=== PATIENT | female | born 2000 | race Caucasian/White ===

== ENCOUNTER 2023-09-18 07:24 | Emergency (ER) | payer BC, SELFPAY ==
[2023-09-18 07:31] VITALS: BP 126/64; PULSE 115; RESP 18; TEMP 36.4; O2SAT 99
--- NOTE | 2023-09-18 07:46 | ED.GENADULT ---
HPI - General Adult General Chief complaint: Upper Respiratory Infection Stated complaint: Cold, headache Time Seen by Provider: 09/18/23 07:37 History of Present Illness HPI narrative: Patient is a 22-year-old female who presents ER with concerns for URI. She reports last night she began developing sinus congestion with postnasal drip and sore throat. It is associated with throbbing headache. She had difficulty sleeping. She tried taking NyQuil without improvement. She endorses fevers. No known sick contacts. Patient has history of asthma but has no dyspnea or wheezing. Patient took Tylenol for headache without relief. Related Data Allergies Allergy/AdvReac Type Severity Reaction Status Date / Time No Known Allergies Allergy Verified 09/18/23 07:34 Review of Systems Review of Systems: All systems reviewed & are unremarkable except as noted in HPI and below Constitutional: Constitutional: Denies chills, Reports fatigue and Reports fever(s) ENT: Reports nasal congestion and Reports sore throat Respiratory: Respiratory: Reports cough, Denies dyspnea and Denies wheezing Gastrointestinal: Gastrointestinal: Denies abdominal pain, Denies nausea and Reports vomiting PMFSH Past Medical History Medical History (Updated 09/18/23 @ 10:13 by Pietro Osorio MD) Asthma Surgical History Surgical History (Updated 09/18/23 @ 07:49 by Pietro Osorio MD) No pertinent past surgical history Exam Narrative: GENERAL: Well-appearing, well-nourished, and in no acute distress. HEAD: Normocephalic, atraumatic. ENT: Mucous membranes moist. NECK: Supple. CHEST: Clear to auscultation. No respiratory distress. HEART: Regular rate and rhythm. Normal peripheral pulses. EXTREMITIES: Normal range of motion. No edema. NEURO: Alert and oriented x3. PSYCH: Normal mood and affect. Course Course Emergency Course: Patient informed of her COVID status. Will be placed on Paxil bid. Headache treated with Toradol. Recommend alternating Tylenol and ibuprofen at home. Vital Signs Vital signs: Vital Signs Temperature 97.6 F 09/18/23 07:31 Pulse Rate 115 H 09/18/23 07:31 Respiratory Rate 18 09/18/23 07:31 Blood Pressure 126/64 09/18/23 07:31 Pulse Oximetry 99 09/18/23 07:31 Oxygen Delivery Room Air 09/18/23 07:31 Temperature 97.6 F 09/18/23 07:31 Pulse Rate 90 09/18/23 10:07 Respiratory Rate 18 09/18/23 10:07 Blood Pressure 120/70 09/18/23 10:07 Pulse Oximetry 99 09/18/23 10:07 Oxygen Delivery Room Air 09/18/23 07:31 Medical Decision Making Vital Signs Vital Signs: Vital Signs Temperature 97.6 F 09/18/23 07:31 Pulse Rate 115 H 09/18/23 07:31 Respiratory Rate 18 09/18/23 07:31 Blood Pressure 126/64 09/18/23 07:31 Pulse Oximetry 99 09/18/23 07:31 Oxygen Delivery Room Air 09/18/23 07:31 Temperature 97.6 F 09/18/23 07:31 Pulse Rate 90 09/18/23 10:07 Respiratory Rate 18 09/18/23 10:07 Blood Pressure 120/70 09/18/23 10:07 Pulse Oximetry 99 09/18/23 10:07 Oxygen Delivery Room Air 09/18/23 07:31 Lab Data Labs: Lab Results 09/18/23 Range/Units 09:06 Influenza A (RT-PCR) Negative (Negative) Influenza B (RT-PCR) Negative (Negative) SARS-CoV-2 RNA (RT-PCR) Positive A (Negative) Discharge Plan Discharge Clinical Impression: COVID Patient Disposition: Home, Self-Care Condition: Stable Instructions: COVID-19 (Coronavirus Disease 2019) (ED) Additional Instructions: Return the ER if you cannot breathe, he can keep down food water, you lose consciousness, or you have additional concerns. Prescriptions: New Paxlovid 150-100 mg tablets,dose pack See Rx Instructions .ROUTE .COMPLEX Qty: 20 0RF Rx Instructions: orally per package directions Follow-up/Referrals: UNKNOWN,DOCTOR [Primary Care Provider] - 1 Week
[2023-09-18] MEDS: KETOROLAC 30 MG/ML VIAL (*BKC) IM (07:56)
[2023-09-18 09:50] LABS: Influenza A QL RT-PCR Negative (Negative); Influenza B QL RT-PCR Negative (Negative); SARS-CoV-2 RNA PCR Positive (Negative)
[2023-09-18 10:07] VITALS: BP 120/70; PULSE 90; RESP 18; O2SAT 99
== END 2023-09-18 10:19 | disposition home or self-care (01) ==
PROVIDERS: Emergency Provider Emergency Medicine
DX: U07.1 COVID-19 (principal); Z20.822 Contact with and (suspected) exposure to COVID-19; J45.909 Unspecified asthma, uncomplicated
CPT/HCPCS: 87636; 96372; 99283; J1885